=== PATIENT | male | born 2000 | race African-American/Black ===

== ENCOUNTER 2020-05-27 17:16 | Emergency (ER) | payer SELFPAY ==
[2020-05-27 21:48] VITALS: BP 121/72
== END 2020-05-27 21:49 | disposition home or self-care (01) ==
LOC: EDBD 17:35 → ER 17:35
DX: M79.671 Pain in right foot (principal); F15.10 Other stimulant abuse, uncomplicated
CPT/HCPCS: 73630; 99283; Z7610

== ENCOUNTER 2021-03-21 20:31 | Emergency (ER) | payer SELFPAY ==
[~2021-03-21] VITALS: Ht 170.2 cm; Wt 66.0 kg
[2021-03-21] MEDS ORDERED: KETOROLAC 60MG/2ML VIAL IM STA (22:43)
[2021-03-21] MEDS ORDERED: TETANUS, DIPHTHERIA, PERTUSSIS VAC/PF 0.5ML (>10YR OLD) IM ONE (22:45)
[2021-03-21] MEDS ORDERED: BACITRACIN ZINC OINT UDPKT TOP ONE (22:45)
[2021-03-22 00:23] VITALS: BP 107/55
[2021-03-22] MEDS ORDERED: HYDR-4001 PO (02:00)
[2021-03-22] MEDS ORDERED: NAPR-681 PO (02:00)
[2021-03-24] MEDS ORDERED: CEFAZOLIN SODIUM 1000MG/VIAL IM ONE (01:30)
== END 2021-03-22 02:25 | disposition home or self-care (01) ==
LOC: ER 20:31
DX: S82.202A Unspecified fracture of shaft of left tibia, initial encounter for closed fracture (principal); Y04.0XXA Assault by unarmed brawl or fight, initial encounter; Y93.89 Activity, other specified; Y92.89 Other specified places as the place of occurrence of the external cause; Y99.8 Other external cause status
CPT/HCPCS: 73590; 90471; 90715; 96372; 99284; J1885

== ENCOUNTER 2021-03-22 09:09 | Emergency (ER) | payer MEDICAID ==
[~2021-03-22] VITALS: Ht 167.6 cm; Wt 68.0 kg
[~2021-03-22 09:09] MED LIST: HYDR-4001 PO; NAPR-681 PO
[2021-03-22 09:12] VITALS: BP 113/66
== END 2021-03-22 11:41 | disposition home or self-care (01) ==
LOC: ER 09:09
DX: S82.202A Unspecified fracture of shaft of left tibia, initial encounter for closed fracture (principal); Y04.0XXA Assault by unarmed brawl or fight, initial encounter; Y93.89 Activity, other specified; Y92.89 Other specified places as the place of occurrence of the external cause; Y99.8 Other external cause status
CPT/HCPCS: 99281; Z7610